=== PATIENT | male | born 1980 | race Caucasian/White ===

== ENCOUNTER → 2021-01-03 | Outpatient (CLI) | payer BC | LOC: LAB 10:48 | PROVIDERS: Internal Medicine | DX: D89.89 Other specified disorders involving the immune mechanism, not elsewhere classified (principal); M25.50 Pain in unspecified joint; R76.8 Other specified abnormal immunological findings in serum; N18.9 Chronic kidney disease, unspecified | CPT/HCPCS: 36415; 80069; 81001; 82570; 84156 ==